=== PATIENT | male | born 2000 | race Hispanic/Latino ===

== ENCOUNTER 2021-02-21 10:33 | Emergency (ER) | payer OTHER ==
[2021-02-21] MEDS ORDERED: ONDANSETRON 4 MG/2 ML VIAL ONE (10:53)
[2021-02-21] MEDS ORDERED: NA CHLORIDE 0.9% 1,000 ML ONE (10:53)
[2021-02-21] MEDS ORDERED: TETANUS & DIPHTHERIA TOX,ADULT 0.5 ML VIAL ONE ×2 (10:53→11:04)
[2021-02-21] MEDS ORDERED: HYDROMORPHONE HCL 1 MG/ML INJ ONE (10:53)
[2021-02-21 11:17] LABS: Absolute Lymphocytes (CBC) 1.3 K/uL (0.7-4.9); Basophils % 0.6 % (0-1.3); Hematocrit 41.6 % (39.6-49.0); Lymphocytes % 27.1 % (15.3-44.8); MPV 9.1 fL (7.6-11.3); RBC Red Blood Cell Count 4.67 M/uL (4.33-5.43)
[2021-02-21 11:32] LABS: ALT/SGPT 33 U/L (12-78); AST/SGOT 29 U/L (15-37); Albumin 3.7 g/dL (3.4-5.0); Alkaline Phosphatase 75 U/L (45-117); BUN Blood Urea Nitrogen 11 mg/dL (7-18); Bicarbonate 27 mmol/L (21-32); Bilirubin Total 0.4 mg/dL (0.2-1.0); Creatine Phosphokinase 632 U/L (39-308); Glucose Level 96 mg/dL (74-106); Potassium 4.2 mmol/L (3.5-5.1); Protein, Total 6.6 g/dL (6.4-8.2); Sodium Level 144 mmol/L (136-145)
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
[2021-02-21 12:51] VITALS: TEMP 98
[2021-02-21 12:55] VITALS: BP 115/65; O2SAT 100
--- NOTE | 2021-02-24 18:34 | EKG ---
Test Date: 2021-02-21 Test Time: 10:48:39 Volcanology Professor: FLORIDALMA MEASUREMENT RESULTS: Intervals: Rate: 63 WA: 216 QRSD: 90 QT: 370 QTc: 378 [place]: P: 63 WA: 216 QRS: 81 T: 63 INTERPRETIVE STATEMENTS: Sinus rhythm with 1st degree AV block Early repolarization Otherwise normal ECG No previous ECG available for comparison Electronically Signed On 02-24-21 18:24:41 NAILING MACHINE OPERATOR AUTOMATIC by Jaime Clemente
== END 2021-02-21 12:39 | disposition home or self-care (01) ==
LOC: ER 10:33
DX: T21.25XA Burn of second degree of buttock, initial encounter (principal); W86.1XXA Exposure to industrial wiring, appliances and electrical machinery, initial encounter; Z23 Encounter for immunization
CPT/HCPCS: 96365; 93005; 85025; 36415; 82550; 80053; 90471; 90714; 96375; 99285; J2405; J1170; J7030